=== PATIENT | female | born 1980 ===

== ENCOUNTER 2019-11-04 14:16 | Emergency (ER) | payer OTHER, MEDICAID, SELFPAY ==
[2019-11-04 14:16] VITALS: BP 95/60; PULSE 77; RESP 14; TEMP 36.7; O2SAT 100
--- NOTE | 2019-11-04 14:46 | PC.NURSE ---
Patient refusing all care at this time. States she just wants to sleep. Stated I could not place IV catheter because it would mess up her invisible tattoos. Informed RT they could not perform EKG. Informed myself I was not allowed to hook her up to monitor.
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
--- NOTE | 2019-11-04 15:34 | PC.NURSE ---
Dr. Wright had discussion with patient. Pt agreed to giving us blood and urine if she gets food. Provided pt with food and drink and patient states I just want to sleep Pt still agrees to have blood drawn at this point. I called Lab to come draw. Lab comes to get me out of a room and reports patient is refusing. I spoke with pt again and pt reports I don't want you to have my stuff in your system. I remind pt of her deal with Dr. Wright and she reports she just wants to sleep. I informed her she could sleep when we have all of her lab work going and patient again refuses. Dr. Wright and Nataliia Charles RN notified.
--- NOTE | 2019-11-04 15:40 | PC.NURSE ---
Pt refused to sign consent to treat, refused to participate in care by allowing testing. Pt states I just want to sleep. I informed that if she were not a patient she would have to leave the ED. Pt denied suicidal / homicidal thoughts / plans. A/o x 3. Steady gait. Pt walked out of department and escorted to front door related to agitation.
== END 2019-11-04 15:41 | disposition left against medical advice (07) ==
PROVIDERS: Emergency Provider Emergency Medicine
DX: F29 Unspecified psychosis not due to a substance or known physiological condition (principal)
CPT/HCPCS: 99281